=== PATIENT | male | born 1940 | race Two or more races ===

== ENCOUNTER 2018-06-19 00:13 | Inpatient (IN) | payer MEDICARE, MEDICAID ==
[~2018-06-19] VITALS: Ht 167.6 cm; Wt 65.8 kg
[2018-06-19 01:42] LABS: BASOPHILS % 0.4 % (0.0-2.0); EOSINOPHILS % 1.6 % (0.0-5.0); HEMATOCRIT. 44.2 % (42.0-52.0); HEMOGLOBIN. 15.1 g/dL (14.0-18.0); MEAN CORPUSCULAR HEMOGLOBIN 29.5 pg (28.0-32.0); MEAN CORPUSCULAR VOLUME 86.5 fL (80.0-94.0); MEAN PLATELET VOLUME 7.3 fl (7.4-10.4); MONOCYTES % 9.9 % (2.0-8.0); NEUTROPHILS % 69.1 % (40.0-76.0); PLATELET 289 x1000/uL (130-400); RED BLOOD CELL COUNT 5.11 mill/uL (4.7-6.1); RED CELL DISTRIBUTION WIDTH 13.3 % (11.6-14.6)
[2018-06-19 01:47] LABS: CHLORIDE 109 mEq/L (98-107)
[2018-06-19 01:51] LABS: ETHANOL BLOOD < 10 mg/dL
[2018-06-19 04:13] LABS: CLARITY URINE CLEAR (CLEAR); COLOR URINE YELLOW (YELLOW); KETONES URINE NEGATIVE (NEGATIVE); LEUKOCYTE ESTERASE URINE NEGATIVE (NEGATIVE); NITRITE URINE NEGATIVE (NEGATIVE); OCCULT BLOOD URINE NEGATIVE (NEGATIVE); PROTEIN URINE NEGATIVE (NEGATIVE); SPECIFIC GRAVITY URINE 1.017 (1.005-1.030)
[2018-06-19 04:16] LABS: *AMPHETAMINES SCREEN URINE NEGATIVE (NEGATIVE)
[2018-06-19 04:17] LABS: *BARBITURATES SCREEN URINE NEGATIVE (NEGATIVE); *BENZODIAZEPINES SCREEN URINE NEGATIVE (NEGATIVE); *COCAINE SCREEN URINE NEGATIVE (NEGATIVE); METHADONE URINE SCREEN NEGATIVE (NEGATIVE); OPIATES URINE SCREEN NEGATIVE (NEGATIVE)
[2018-06-19 04:18] LABS: CANNABINOID URINE SCREEN NEGATIVE (NEGATIVE); PHENCYCLIDINE URINE SCREEN NEGATIVE (NEGATIVE)
[2018-06-19] MEDS ORDERED: ONDANSETRON HCL 4MG/2ML INJ IV PRN (09:00)
[2018-06-19] MEDS ORDERED: ACETAMINOPHEN 650MG SUPP PR PRN (09:00)
[2018-06-19] MEDS ORDERED: ACETAMINOPHEN 325MG TABLET PO PRN (09:00)
[2018-06-19] MEDS ORDERED: CLONIDINE 0.1MG TABLET PO PRN (09:00)
[2018-06-19] MEDS ORDERED: HYDROCODONE/ACETAMINOPHEN 5/325MG TABLET PO PRN (09:00)
[2018-06-19] MEDS ORDERED: MAGNESIUM/ALUMINUM HYDROXIDE/SIMETHICONE 30ML UDC PO PRN (09:00)
[2018-06-19] MEDS ORDERED: IPRATROPIUM/ALBUTEROL 0.5-3(2.5)MG/3ML NEB INH PRN (09:00)
[2018-06-19] MEDS ORDERED: DOCUSATE SODIUM 100MG CAPSULE PO PRN (09:00)
[2018-06-19] MEDS ORDERED: ACETAMINOPHEN 650MG/20.3ML UDC GT PRN (09:00)
[2018-06-19] MEDS ORDERED: NA PHOS,M-B/NA PHOS,DI-BA ENEMA 118ML PR PRN (09:00)
[2018-06-19] MEDS ORDERED: GUAIFENESIN 200MG/10ML SUGAR FREE UDC PO PRN (09:00)
[2018-06-19] MEDS: SODIUM CHLORIDE 0.9% INJ 3ML FLUSH IVF SCH ×2 (14:00→21:54)
[2018-06-19 17:00] VITALS: BP 138/78
[2018-06-19] MEDS: ENOXAPARIN 40MG/0.4ML SYR SUBCUT SCH (17:00)
[2018-06-19 20:00] VITALS: BP 146/64
[2018-06-19 21:38] LABS: CREATINE KINASE 135 IU/L (39-308)
[2018-06-19 21:39] LABS: CREATINE KINASE MB FRACTION 1.4 ng/mL (0.5-3.6)
[2018-06-19 23:50] VITALS: BP 153/81
[2018-06-20 01:17] LABS: CREATINE KINASE 130 IU/L (39-308)
[2018-06-20 01:18] LABS: CREATINE KINASE MB FRACTION 1.5 ng/mL (0.5-3.6)
[2018-06-20 04:00] VITALS: BP 110/80
[2018-06-20] MEDS: SODIUM CHLORIDE 0.9% INJ 3ML FLUSH IVF SCH ×2 (06:40→15:37)
[2018-06-20 07:06] LABS: CHLORIDE 108 mEq/L (98-107)
[2018-06-20 07:11] LABS: BASOPHILS % 0.1 % (0.0-2.0); EOSINOPHILS % 1.6 % (0.0-5.0); HEMATOCRIT. 44.5 % (42.0-52.0); HEMOGLOBIN. 15.2 g/dL (14.0-18.0); LYMPHOCYTES % 22.5 % (20.0-50.0); MEAN CORPUSCULAR HEMOGLOBIN 29.5 pg (28.0-32.0); MEAN CORPUSCULAR VOLUME 86.2 fL (80.0-94.0); MEAN PLATELET VOLUME 7.6 fl (7.4-10.4); MONOCYTES % 8.8 % (2.0-8.0); PLATELET 294 x1000/uL (130-400); RED BLOOD CELL COUNT 5.16 mill/uL (4.7-6.1); RED CELL DISTRIBUTION WIDTH 13.4 % (11.6-14.6)
[2018-06-20 07:31] LABS: LDL CHOLESTEROL 115 mg/dL (5-100)
[2018-06-20 07:32] LABS: HDL CHOLESTEROL 34 mg/dL (40-59)
[2018-06-20 08:16] VITALS: BP 128/56
[2018-06-20] MEDS ORDERED: MULT-1146 MT (09:01)
[2018-06-20] MEDS ORDERED: THIA100T72 PO (09:01)
[2018-06-20] MEDS ORDERED: AMLO10TA4 MT (09:01)
[2018-06-20] MEDS ORDERED: CHOL100036 PO (09:01)
[2018-06-20] MEDS ORDERED: CLON0.1T MT (09:02)
[2018-06-20] MEDS ORDERED: MEMA10TA19 PO (09:02)
[2018-06-20] MEDS ORDERED: AMLODIPINE 10MG TABLET PO SCH (09:30)
[2018-06-20] MEDS ORDERED: MULTIVITAMINS,THER W-MINERALS TABLET PO SCH (09:30)
[2018-06-20] MEDS ORDERED: MEDICATION NOT ON FORMULARY EA (Multivitamin (Multi Vitamin Daily) 1 TAB) MT SCH (09:30)
[2018-06-20] MEDS: MEMANTINE HCL 10MG TABLET PO SCH ×2 (09:35→17:13)
[2018-06-20 12:00] VITALS: BP 128/68
[2018-06-20 16:29] VITALS: BP 122/51
[2018-06-20 17:05] VITALS: BP 122/52
[2018-06-20] MEDS: ENOXAPARIN 40MG/0.4ML SYR SUBCUT SCH (17:16)
[2018-06-20] MEDS ORDERED: ATORVASTATIN CALCIUM 10MG TABLET PO SCH (21:00)
[2018-06-20] MEDS ORDERED: CLONIDINE 0.1MG TABLET PO SCH (21:00)
== END 2018-06-20 18:32 | DRG 48 ==
LOC: ER 00:13 → 6WST 07:46 → ENRESERV 15:25 → 6WST 16:53
PROVIDERS: ADMIT Family Medicine; ATTEND Family Medicine
DX: G90.8 Other disorders of autonomic nervous system (principal); E87.8 Other disorders of electrolyte and fluid balance, not elsewhere classified; I11.0 Hypertensive heart disease with heart failure; I50.9 Heart failure, unspecified; R55 Syncope and collapse; E11.9 Type 2 diabetes mellitus without complications; M19.90 Unspecified osteoarthritis, unspecified site; F17.200 Nicotine dependence, unspecified, uncomplicated
CPT/HCPCS: 36415; 71045; 72170; 80061; 80305; 82140; 82550; 82553; 83880; 84484; 93005; 97161; 97166; 99285; G0482; J1650

== ENCOUNTER 2021-04-24 14:06 | Inpatient (IN) | payer MEDICARE, MEDICAID ==
[~2021-04-24] VITALS: Ht 165.1 cm; Wt 79.8 kg
[~2021-04-24 14:06] MED LIST: AMLO10TA4 MT; CHOL100036 PO; CLON0.1T MT; MEMA10TA55 PO; MULT-1146 MT; THIA100T72 PO
[2021-04-24] MEDS ORDERED: SODIUM CHLORIDE 0.9% 1,000 ML IV ONE (14:30)
[2021-04-24 15:15] LABS: BASOPHILS % 0.1 % (0.0-2.0); EOSINOPHILS % 1.2 % (0.0-5.0); HEMATOCRIT. 45.9 % (42.0-52.0); HEMOGLOBIN. 14.9 g/dL (14.0-18.0); MEAN CORPUSCULAR HEMOGLOBIN 28.8 pg (28.0-32.0); MEAN CORPUSCULAR VOLUME 88.6 fL (80.0-94.0); MEAN PLATELET VOLUME 7.7 fl (7.4-10.4); MONOCYTES % 5.2 % (2.0-8.0); NEUTROPHILS % 78.5 % (40.0-76.0); PLATELET 278 x1000/uL (130-400); RED BLOOD CELL COUNT 5.18 mill/uL (4.7-6.1); RED CELL DISTRIBUTION WIDTH 13.8 % (11.6-14.6)
[2021-04-24 15:22] LABS: CHLORIDE 108 mEq/L (98-107)
[2021-04-24] MEDS ORDERED: ONDANSETRON HCL 4MG/2ML INJ IV PRN (17:15)
[2021-04-24] MEDS ORDERED: DIPHENHYDRAMINE 50MG/ML VIAL IV PRN (17:15)
[2021-04-24] MEDS ORDERED: ACETAMINOPHEN 325MG TABLET PO PRN (17:15)
[2021-04-24 18:29] LABS: CLARITY URINE CLEAR (CLEAR); COLOR URINE YELLOW (YELLOW); KETONES URINE NEGATIVE (NEGATIVE); LEUKOCYTE ESTERASE URINE TRACE (NEGATIVE); NITRITE URINE NEGATIVE (NEGATIVE); OCCULT BLOOD URINE NEGATIVE (NEGATIVE); PROTEIN URINE 1+ (NEGATIVE); SPECIFIC GRAVITY URINE 1.019 (1.005-1.030)
[2021-04-24] MEDS: SODIUM CHLORIDE 0.9% 1,000 ML IV SCH (21:39)
[2021-04-25] VITALS (10 sets, daily range): BP systolic 120–148; BP diastolic 70–81
[2021-04-25] MEDS ORDERED: DEXTROSE 50% WATER 50ML SYRINGE IV PRN (00:15)
[2021-04-25] MEDS ORDERED: ARIP20TA16 PO (00:55)
[2021-04-25] MEDS ORDERED: OMEP1PAC7 PO (00:55)
[2021-04-25] MEDS ORDERED: MULT-1183 MT (00:55)
[2021-04-25] MEDS ORDERED: ASPI-1497 PO (00:55)
[2021-04-25] MEDS: BLOOD SUGAR DIAGNOSTIC STRIP TEST SCH ×4 (06:03→21:00)
[2021-04-25] MEDS: INSULIN LISPRO 100 UNITS/ML SUBCUT SCH ×4 (06:03→21:00)
[2021-04-25 06:46] LABS: BASOPHILS % 0.4 % (0.0-2.0); EOSINOPHILS % 1.7 % (0.0-5.0); HEMOGLOBIN. 14.5 g/dL (14.0-18.0); LYMPHOCYTES % 28.2 % (20.0-50.0); MEAN CORPUSCULAR HEMOGLOBIN 29.7 pg (28.0-32.0); MEAN CORPUSCULAR VOLUME 88.3 fL (80.0-94.0); MEAN PLATELET VOLUME 7.8 fl (7.4-10.4); MONOCYTES % 8.6 % (2.0-8.0); NEUTROPHILS % 61.1 % (40.0-76.0); PLATELET 242 x1000/uL (130-400); RED BLOOD CELL COUNT 4.87 mill/uL (4.7-6.1); RED CELL DISTRIBUTION WIDTH 13.6 % (11.6-14.6)
[2021-04-25 07:14] LABS: CHLORIDE 112 mEq/L (98-107)
[2021-04-25] MEDS: SODIUM CHLORIDE 0.9% 1,000 ML IV SCH ×2 (14:00→17:43)
[2021-04-25] MEDS: ARIPIPRAZOLE 5MG TABLET PO SCH ×2 (17:43→22:06)
[2021-04-25] MEDS: THIAMINE HCL 100MG TABLET PO SCH (17:44)
[2021-04-25] MEDS: ASPIRIN 81MG TABLET PO SCH (17:44)
[2021-04-25] MEDS: MEMANTINE HCL 10MG TABLET PO SCH (22:05)
[2021-04-26] VITALS (7 sets, daily range): BP systolic 126–172; BP diastolic 60–92
[2021-04-26] MEDS: INSULIN LISPRO 100 UNITS/ML SUBCUT SCH ×4 (05:54→21:00)
[2021-04-26] MEDS: BLOOD SUGAR DIAGNOSTIC STRIP TEST SCH ×4 (06:26→21:00)
[2021-04-26] MEDS: OMEPRAZOLE 20MG CAPSULE EXTENDED RELEASE PO SCH (06:27)
[2021-04-26 07:54] LABS: FOLIC ACID (FOLATE) SERUM 15.1 ng/mL (>5.38)
[2021-04-26] MEDS: CLONIDINE 0.1MG TABLET PO PRN (08:21)
[2021-04-26] MEDS: THIAMINE HCL 100MG TABLET PO SCH (08:21)
[2021-04-26] MEDS: AMLODIPINE 5MG TABLET PO SCH (08:21)
[2021-04-26] MEDS: MEMANTINE HCL 10MG TABLET PO SCH ×2 (08:21→22:07)
[2021-04-26] MEDS: MULTIVITAMINS,THER W-MINERALS TABLET PO SCH (08:21)
[2021-04-26] MEDS: ASPIRIN 81MG TABLET PO SCH (08:21)
[2021-04-26] MEDS: SODIUM CHLORIDE 0.9% 1,000 ML IV SCH (08:22)
[2021-04-26] MEDS: ARIPIPRAZOLE 5MG TABLET PO SCH (22:07)
[2021-04-27] VITALS: BP 126/83
[2021-04-27 04:00] VITALS: BP 160/84
[2021-04-27] MEDS: SODIUM CHLORIDE 0.9% 1,000 ML IV SCH (06:00)
[2021-04-27] MEDS: OMEPRAZOLE 20MG CAPSULE EXTENDED RELEASE PO SCH (07:16)
[2021-04-27] MEDS: INSULIN LISPRO 100 UNITS/ML SUBCUT SCH ×4 (07:50→21:00)
[2021-04-27 08:00] VITALS: BP 151/71
[2021-04-27] MEDS: BLOOD SUGAR DIAGNOSTIC STRIP TEST SCH ×4 (08:05→21:00)
[2021-04-27] MEDS: ASPIRIN 81MG TABLET PO SCH (08:24)
[2021-04-27] MEDS: THIAMINE HCL 100MG TABLET PO SCH (08:24)
[2021-04-27] MEDS: MULTIVITAMINS,THER W-MINERALS TABLET PO SCH (08:24)
[2021-04-27] MEDS: AMLODIPINE 5MG TABLET PO SCH ×2 (08:25→21:00)
[2021-04-27] MEDS: MEMANTINE HCL 10MG TABLET PO SCH ×2 (08:25→21:56)
[2021-04-27 12:00] VITALS: BP 165/83
[2021-04-27 16:00] VITALS: BP 143/80
[2021-04-27] MEDS: CLONIDINE 0.1MG TABLET PO PRN (18:10)
[2021-04-27 20:00] VITALS: BP 131/79
[2021-04-27] MEDS: ARIPIPRAZOLE 5MG TABLET PO SCH (21:56)
[2021-04-28] VITALS: BP 137/78
[2021-04-28] MEDS: SODIUM CHLORIDE 0.9% 1,000 ML IV SCH (02:00)
[2021-04-28 04:00] VITALS: BP 132/79
[2021-04-28] MEDS: BLOOD SUGAR DIAGNOSTIC STRIP TEST SCH ×3 (07:49→17:20)
[2021-04-28] MEDS: INSULIN LISPRO 100 UNITS/ML SUBCUT SCH ×3 (07:50→17:50)
[2021-04-28] MEDS ORDERED: FAMOTIDINE 20MG TABLET PO SCH (09:00)
[2021-04-28] MEDS: THIAMINE HCL 100MG TABLET PO SCH (09:21)
[2021-04-28] MEDS: AMLODIPINE 5MG TABLET PO SCH (09:22)
[2021-04-28] MEDS: MULTIVITAMINS,THER W-MINERALS TABLET PO SCH (09:22)
[2021-04-28] MEDS: MEMANTINE HCL 10MG TABLET PO SCH (09:22)
[2021-04-28] MEDS: ASPIRIN 81MG TABLET PO SCH (09:22)
[2021-04-28 15:10] VITALS: BP 158/83
== END 2021-04-28 20:39 | DRG 422 ==
LOC: ER 14:06 → ENRESERV 21:11 → 8WST 04-25 00:55 → 6EST 04-26 10:37
PROVIDERS: ADMIT Internal Medicine; ATTEND Internal Medicine
DX: E86.0 Dehydration (principal); N17.0 Acute kidney failure with tubular necrosis; E11.22 Type 2 diabetes mellitus with diabetic chronic kidney disease; F20.9 Schizophrenia, unspecified; N18.9 Chronic kidney disease, unspecified; Z20.822 Contact with and (suspected) exposure to COVID-19; I12.9 Hypertensive chronic kidney disease with stage 1 through stage 4 chronic kidney disease, or unspecified chronic kidney disease; Z87.891 Personal history of nicotine dependence; F10.11 Alcohol abuse, in remission
CPT/HCPCS: 36415; 71045; 80048; 80053; 81003; 82607; 82728; 82746; 82962; 83540; 83550; 84443; 85025; 87426; 87804; 93005; 93970; 97162; 99291; J7030

== ENCOUNTER 2021-07-02 11:57 | Emergency (ER) | payer MEDICARE, MEDICAID ==
[~2021-07-02] VITALS: Ht 157.5 cm; Wt 75.0 kg
[~2021-07-02 11:57] MED LIST changes: +ARIP20TA16 PO; +ASPI-1497 PO; +MULT-1183 MT; +OMEP1PAC7 PO
[2021-07-02] MEDS ORDERED: SODIUM CHLORIDE 0.9% 500 ML IV ONE (12:15)
[2021-07-02 13:26] LABS: CHLORIDE 105 mEq/L (98-107)
[2021-07-02 13:30] LABS: HEMATOCRIT. 44.4 % (42.0-52.0); HEMOGLOBIN. 15.1 g/dL (14.0-18.0); MEAN CORPUSCULAR HEMOGLOBIN 29.2 pg (28.0-32.0); MEAN CORPUSCULAR VOLUME 86.2 fL (80.0-94.0); MEAN PLATELET VOLUME 7.5 fl (7.4-10.4); PLATELET 328 x1000/uL (130-400); RED BLOOD CELL COUNT 5.16 mill/uL (4.7-6.1); RED CELL DISTRIBUTION WIDTH 13.5 % (11.6-14.6)
[2021-07-02 14:06] LABS: PLATELET ESTIMATE NORMAL
[2021-07-02 14:44] LABS: CLARITY URINE CLEAR (CLEAR); COLOR URINE YELLOW (YELLOW); KETONES URINE NEGATIVE (NEGATIVE); LEUKOCYTE ESTERASE URINE NEGATIVE (NEGATIVE); NITRITE URINE NEGATIVE (NEGATIVE); OCCULT BLOOD URINE NEGATIVE (NEGATIVE); PROTEIN URINE TRACE (NEGATIVE); SPECIFIC GRAVITY URINE 1.012 (1.005-1.030)
[2021-07-02 18:37] VITALS: BP 120/68
== END 2021-07-02 18:46 ==
LOC: ER 12:05
DX: F03.90 Unspecified dementia, unspecified severity, without behavioral disturbance, psychotic disturbance, mood disturbance, and anxiety (principal); I10 Essential (primary) hypertension
CPT/HCPCS: 36415; 70450; 71045; 80053; 81003; 82962; 83690; 84484; 85025; 85610; 93005; 96360; 96361; 99285; J7040

== ENCOUNTER 2022-08-04 11:23 | Inpatient (IN) | payer MEDICARE, MEDICAID ==
[~2022-08-04] VITALS: Ht 162.6 cm; Wt 64.1 kg
[~2022-08-04 11:23] MED LIST changes: +TAMS-11 PO
[2022-08-04] MEDS ORDERED: SODIUM CHLORIDE 0.9% 1,000 ML IV ONE (12:30)
[2022-08-04 13:09] LABS: CHLORIDE 116 mEq/L (98-107)
[2022-08-04 13:10] LABS: INR 1.2; PROTHROMBIN TIME 12.7 sec (9.6-11.0)
[2022-08-04 15:02] LABS: BASOPHILS % 0.3 % (0.0-2.0); EOSINOPHILS % 2.7 % (0.0-5.0); HEMATOCRIT. 44.3 % (42.0-52.0); HEMOGLOBIN. 14.6 g/dL (14.0-18.0); LYMPHOCYTES % 8.3 % (20.0-50.0); MEAN CORPUSCULAR HEMOGLOBIN 28.7 pg (28.0-32.0); MEAN CORPUSCULAR VOLUME 87.3 fL (80.0-94.0); MEAN PLATELET VOLUME 7.2 fl (7.4-10.4); MONOCYTES % 4.5 % (2.0-8.0); NEUTROPHILS % 84.2 % (40.0-76.0); PLATELET 435 x1000/uL (130-400); RED BLOOD CELL COUNT 5.08 mill/uL (4.7-6.1); RED CELL DISTRIBUTION WIDTH 14.2 % (11.6-14.6)
[2022-08-04 18:00] VITALS: BP 131/65
[2022-08-04] MEDS ORDERED: CLON0.1T PO (19:23)
[2022-08-04] MEDS ORDERED: CLON0.1T MT (19:23)
[2022-08-04] MEDS ORDERED: ARIP5TAB58 MT (19:23)
[2022-08-04] MEDS ORDERED: INSLIS SUBCUT (19:23)
[2022-08-04] MEDS ORDERED: ENOXAPARIN 40MG/0.4ML SYR SUBCUT SCH (19:45)
[2022-08-04] MEDS ORDERED: DEXTROSE 50% WATER 50ML SYRINGE IV PRN (19:45)
[2022-08-04] MEDS ORDERED: ONDANSETRON HCL 4MG/2ML INJ IV PRN (19:45)
[2022-08-04] MEDS ORDERED: ACETAMINOPHEN 325MG TABLET PO PRN (19:45)
[2022-08-04] MEDS ORDERED: CLONIDINE 0.1MG TABLET PO PRN (19:45)
[2022-08-04 20:00] VITALS: BP 128/65
[2022-08-04] MEDS ORDERED: LEVOFLOXACIN 500MG PREMIX 100 ML IV NR (21:00)
[2022-08-04] MEDS: INSULIN LISPRO 100 UNITS/ML SUBCUT SCH (21:00)
[2022-08-04] MEDS: BLOOD SUGAR DIAGNOSTIC STRIP TEST SCH (21:00)
[2022-08-04] MEDS: PANTOPRAZOLE SODIUM 40 MG/VIAL IV SCH (21:52)
[2022-08-04] MEDS: ENOXAPARIN 30MG/0.3ML SYR SUBCUT SCH (21:54)
[2022-08-04] MEDS: SODIUM CHLORIDE 0.9% 1,000 ML IV SCH (21:57)
[2022-08-04] MEDS: METRONIDAZOLE 500 MG PREMIX 100 ML IV SCH (23:02)
[2022-08-05 00:17] VITALS: BP 118/58
[2022-08-05 04:00] VITALS: BP 135/73
[2022-08-05] MEDS: SODIUM CHLORIDE 0.9% 1,000 ML IV SCH (04:00)
[2022-08-05] MEDS: METRONIDAZOLE 500 MG PREMIX 100 ML IV SCH ×3 (05:19→20:43)
[2022-08-05 06:06] LABS: BASOPHILS % 0.1 % (0.0-2.0); EOSINOPHILS % 3.8 % (0.0-5.0); HEMATOCRIT. 40.4 % (42.0-52.0); HEMOGLOBIN. 13.2 g/dL (14.0-18.0); LYMPHOCYTES % 12.5 % (20.0-50.0); MEAN CORPUSCULAR HEMOGLOBIN 27.9 pg (28.0-32.0); MEAN CORPUSCULAR VOLUME 85.6 fL (80.0-94.0); MEAN PLATELET VOLUME 7.3 fl (7.4-10.4); MONOCYTES % 6.1 % (2.0-8.0); NEUTROPHILS % 77.5 % (40.0-76.0); PLATELET 353 x1000/uL (130-400); RED BLOOD CELL COUNT 4.72 mill/uL (4.7-6.1)
[2022-08-05] MEDS: BLOOD SUGAR DIAGNOSTIC STRIP TEST SCH ×4 (06:50→20:42)
[2022-08-05 08:00] VITALS: BP 156/75
[2022-08-05] MEDS: INSULIN LISPRO 100 UNITS/ML SUBCUT SCH ×4 (08:10→20:42)
[2022-08-05] MEDS: ASPIRIN 81MG EC TABLET PO SCH (08:30)
[2022-08-05] MEDS: ARIPIPRAZOLE 5MG TABLET PO SCH (08:31)
[2022-08-05] MEDS: MEMANTINE HCL 10MG TABLET PO SCH ×2 (08:31→17:09)
[2022-08-05] MEDS: TAMSULOSIN HCL 0.4MG SR CAPSULE PO SCH (08:35)
[2022-08-05] MEDS: AMLODIPINE 10MG TABLET PO SCH (08:35)
[2022-08-05] MEDS: DEXT 5%/0.45% NACL 1000ML 1,000 ML IV SCH (10:59)
[2022-08-05 12:00] VITALS: BP 144/69
[2022-08-05 16:35] VITALS: BP 129/65
[2022-08-05 20:00] VITALS: BP 141/72
[2022-08-05] MEDS: PANTOPRAZOLE SODIUM 40 MG/VIAL IV SCH (20:42)
[2022-08-05] MEDS: ENOXAPARIN 30MG/0.3ML SYR SUBCUT SCH (20:42)
[2022-08-06] VITALS: BP 152/59
[2022-08-06 04:00] VITALS: BP 134/71
[2022-08-06] MEDS: BLOOD SUGAR DIAGNOSTIC STRIP TEST SCH ×4 (05:59→20:16)
[2022-08-06] MEDS: METRONIDAZOLE 500 MG PREMIX 100 ML IV SCH ×3 (05:59→20:17)
[2022-08-06] MEDS: INSULIN LISPRO 100 UNITS/ML SUBCUT SCH ×4 (05:59→20:16)
[2022-08-06 06:47] LABS: BASOPHILS % 0.4 % (0.0-2.0); EOSINOPHILS % 3.7 % (0.0-5.0); HEMATOCRIT. 39.3 % (42.0-52.0); LYMPHOCYTES % 12.5 % (20.0-50.0); MEAN CORPUSCULAR HEMOGLOBIN 28.3 pg (28.0-32.0); MEAN CORPUSCULAR VOLUME 85.7 fL (80.0-94.0); MEAN PLATELET VOLUME 7.4 fl (7.4-10.4); MONOCYTES % 6.6 % (2.0-8.0); NEUTROPHILS % 76.8 % (40.0-76.0); PLATELET 380 x1000/uL (130-400); RED BLOOD CELL COUNT 4.58 mill/uL (4.7-6.1); RED CELL DISTRIBUTION WIDTH 14.3 % (11.6-14.6)
[2022-08-06 08:00] VITALS: BP 148/76
[2022-08-06] MEDS: MEMANTINE HCL 10MG TABLET PO SCH ×2 (08:23→16:22)
[2022-08-06] MEDS: TAMSULOSIN HCL 0.4MG SR CAPSULE PO SCH (08:23)
[2022-08-06] MEDS: ARIPIPRAZOLE 5MG TABLET PO SCH (08:23)
[2022-08-06] MEDS: AMLODIPINE 10MG TABLET PO SCH (08:24)
[2022-08-06] MEDS: ASPIRIN 81MG EC TABLET PO SCH (08:24)
[2022-08-06] MEDS ORDERED: LEVOFLOXACIN 500MG PREMIX 100 ML IV SCH (11:00)
[2022-08-06 12:00] VITALS: BP 103/60
[2022-08-06] MEDS: DEXT 5%/0.45% NACL 1000ML 1,000 ML IV SCH ×2 (13:04)
[2022-08-06 16:00] VITALS: BP 113/53
[2022-08-06 20:00] VITALS: BP 110/47
[2022-08-06] MEDS: FAMOTIDINE 20MG/2ML VIAL IV SCH (20:16)
[2022-08-06] MEDS: ENOXAPARIN 30MG/0.3ML SYR SUBCUT SCH (20:16)
[2022-08-06] MEDS ORDERED: DIPHENOXYLATE/ATROPINE 2.5/0.025MG TABLET PO NR (23:06)
[2022-08-07] VITALS: BP 107/51
[2022-08-07 04:00] VITALS: BP 104/48
[2022-08-07] MEDS: DEXT 5%/0.45% NACL 1000ML 1,000 ML IV SCH ×2 (04:08→15:53)
[2022-08-07] MEDS: BLOOD SUGAR DIAGNOSTIC STRIP TEST SCH ×4 (05:25→20:16)
[2022-08-07] MEDS: INSULIN LISPRO 100 UNITS/ML SUBCUT SCH ×4 (05:25→20:16)
[2022-08-07] MEDS: METRONIDAZOLE 500 MG PREMIX 100 ML IV SCH ×3 (05:31→20:17)
[2022-08-07 06:08] LABS: BASOPHILS % 0.3 % (0.0-2.0); EOSINOPHILS % 3.8 % (0.0-5.0); HEMATOCRIT. 35.1 % (42.0-52.0); HEMOGLOBIN. 11.8 g/dL (14.0-18.0); LYMPHOCYTES % 20.6 % (20.0-50.0); MEAN CORPUSCULAR HEMOGLOBIN 28.7 pg (28.0-32.0); MEAN CORPUSCULAR VOLUME 85.1 fL (80.0-94.0); MEAN PLATELET VOLUME 7.3 fl (7.4-10.4); MONOCYTES % 8.2 % (2.0-8.0); NEUTROPHILS % 67.1 % (40.0-76.0); PLATELET 353 x1000/uL (130-400); RED BLOOD CELL COUNT 4.12 mill/uL (4.7-6.1); RED CELL DISTRIBUTION WIDTH 13.7 % (11.6-14.6)
[2022-08-07 08:00] VITALS: BP 118/66
[2022-08-07] MEDS: TAMSULOSIN HCL 0.4MG SR CAPSULE PO SCH (10:32)
[2022-08-07] MEDS: ARIPIPRAZOLE 5MG TABLET PO SCH (10:32)
[2022-08-07] MEDS: AMLODIPINE 10MG TABLET PO SCH (10:33)
[2022-08-07] MEDS: ASPIRIN 81MG EC TABLET PO SCH (10:33)
[2022-08-07] MEDS: MEMANTINE HCL 10MG TABLET PO SCH ×2 (10:38→18:49)
[2022-08-07 12:00] VITALS: BP 115/68
[2022-08-07 16:00] VITALS: BP 101/58
[2022-08-07 20:00] VITALS: BP 107/43
[2022-08-07] MEDS: ENOXAPARIN 30MG/0.3ML SYR SUBCUT SCH (20:16)
[2022-08-07] MEDS: FAMOTIDINE 20MG/2ML VIAL IV SCH (20:16)
[2022-08-08] VITALS: BP 117/51
[2022-08-08] MEDS: DEXT 5%/0.45% NACL 1000ML 1,000 ML IV SCH ×2 (05:26→18:03)
[2022-08-08] MEDS: METRONIDAZOLE 500 MG PREMIX 100 ML IV SCH ×3 (05:26→20:54)
[2022-08-08] MEDS: INSULIN LISPRO 100 UNITS/ML SUBCUT SCH ×4 (05:27→20:54)
[2022-08-08] MEDS: BLOOD SUGAR DIAGNOSTIC STRIP TEST SCH ×4 (05:27→20:54)
[2022-08-08] MEDS: TAMSULOSIN HCL 0.4MG SR CAPSULE PO SCH (09:18)
[2022-08-08] MEDS: ARIPIPRAZOLE 5MG TABLET PO SCH (09:19)
[2022-08-08] MEDS: MEMANTINE HCL 10MG TABLET PO SCH ×2 (09:19→18:03)
[2022-08-08] MEDS: AMLODIPINE 10MG TABLET PO SCH (09:19)
[2022-08-08] MEDS: ASPIRIN 81MG EC TABLET PO SCH (09:30)
[2022-08-08] MEDS ORDERED: LEVOFLOXACIN 750MG PREMIX 150 ML IV SCH (10:00)
[2022-08-08 12:00] VITALS: BP 113/69
[2022-08-08 16:00] VITALS: BP 115/68
[2022-08-08 20:00] VITALS: BP 111/56
[2022-08-08] MEDS: FAMOTIDINE 20MG/2ML VIAL IV SCH (20:53)
[2022-08-08] MEDS: ENOXAPARIN 30MG/0.3ML SYR SUBCUT SCH (20:53)
[2022-08-09] VITALS: BP 103/48
[2022-08-09 04:00] VITALS: BP 123/70
[2022-08-09] MEDS: METRONIDAZOLE 500 MG PREMIX 100 ML IV SCH ×2 (06:05→14:12)
[2022-08-09] MEDS: INSULIN LISPRO 100 UNITS/ML SUBCUT SCH ×2 (06:05→13:02)
[2022-08-09] MEDS: BLOOD SUGAR DIAGNOSTIC STRIP TEST SCH ×2 (06:05→13:01)
[2022-08-09] MEDS: DEXT 5%/0.45% NACL 1000ML 1,000 ML IV SCH (08:05)
[2022-08-09] MEDS: MEMANTINE HCL 10MG TABLET PO SCH (08:47)
[2022-08-09] MEDS: ARIPIPRAZOLE 5MG TABLET PO SCH (08:47)
[2022-08-09] MEDS: ASPIRIN 81MG EC TABLET PO SCH (08:47)
[2022-08-09] MEDS: TAMSULOSIN HCL 0.4MG SR CAPSULE PO SCH (08:48)
[2022-08-09] MEDS: AMLODIPINE 10MG TABLET PO SCH (08:48)
[2022-08-09 14:59] VITALS: BP 113/54
== END 2022-08-09 15:20 | DRG 720 ==
LOC: ER 11:23 → EDBEDREQ 16:00 → 7WST 18:00
PROVIDERS: ADMIT Internal Medicine; ATTEND Internal Medicine
DX: A41.9 Sepsis, unspecified organism (principal); N17.0 Acute kidney failure with tubular necrosis; G93.41 Metabolic encephalopathy; A09 Infectious gastroenteritis and colitis, unspecified; E11.9 Type 2 diabetes mellitus without complications; I10 Essential (primary) hypertension; K57.30 Diverticulosis of large intestine without perforation or abscess without bleeding; K21.9 Gastro-esophageal reflux disease without esophagitis; R26.81 Unsteadiness on feet; F03.90 Unspecified dementia, unspecified severity, without behavioral disturbance, psychotic disturbance, mood disturbance, and anxiety; F20.9 Schizophrenia, unspecified; F10.20 Alcohol dependence, uncomplicated; Z79.899 Other long term (current) drug therapy
CPT/HCPCS: 36415; 74176; 80048; 80053; 82962; 83605; 84145; 85025; 93005; 97162; 97530; 99285; A6261; C9113; J1650; J1956; J3490; J7030; A4315

== ENCOUNTER 2022-08-21 14:20 | Inpatient (IN) | payer MEDICARE, MEDICAID ==
[~2022-08-21] VITALS: Ht 160 cm; Wt 65.8 kg
[~2022-08-21 14:20] MED LIST changes: -ARIP20TA16 PO; +ARIP5TAB58 MT; +CLON0.1T PO; +INSLIS SUBCUT; -MULT-1146 MT; -MULT-1183 MT; -THIA100T72 PO
[2022-08-21 16:04] LABS: BG CARBOXYHEMOGLOBIN 1.1 % (0.5-1.5); BG DEOXYHEMOGLOBIN 5.2 % (0.0-5.0); BG FRACTION INSPIRED OXYGEN 21; BG HCO3 ACT 23.4 mmol/L (22.0-26.0); BG METHEMOGLOBIN 0.1 % (0.0-1.5); BG OXYGEN SATURATION 94.7 % (92.0-98.5); BG OXYHEMOGLOBIN 93.6 % (94.0-97.0); BG PCO2 34.4 mmHg (35.0-45.0); BG PO2 72.4 mmHg (75.0-100.0); BG SAMPLE SITE RIGHT BRACHIAL; BG VENT MODE ROOM AIR
[2022-08-21 16:28] LABS: BASOPHILS % 0.4 % (0.0-2.0); EOSINOPHILS % 5.1 % (0.0-5.0); HEMOGLOBIN. 15.5 g/dL (14.0-18.0); LYMPHOCYTES % 35.8 % (20.0-50.0); MEAN CORPUSCULAR HEMOGLOBIN 28.9 pg (28.0-32.0); MEAN CORPUSCULAR VOLUME 86.2 fL (80.0-94.0); MEAN PLATELET VOLUME 7.9 fl (7.4-10.4); MONOCYTES % 9.2 % (2.0-8.0); NEUTROPHILS % 49.5 % (40.0-76.0); PLATELET 328 x1000/uL (130-400); RED BLOOD CELL COUNT 5.34 mill/uL (4.7-6.1); RED CELL DISTRIBUTION WIDTH 15.8 % (11.6-14.6)
[2022-08-21 16:42] LABS: CHLORIDE 107 mEq/L (98-107)
[2022-08-21 16:58] LABS: CREATINE KINASE 24 IU/L (39-308); ETHANOL BLOOD < 10 mg/dL
[2022-08-21] MEDS: DEXT 5%/0.45% NACL 1000ML 1,000 ML IV SCH (19:30)
[2022-08-21] MEDS ORDERED: ONDANSETRON HCL 4MG/2ML INJ IV PRN (19:30)
[2022-08-21] MEDS: HEPARIN 5000 UNITS/ML VIAL SUBCUT SCH (21:00)
[2022-08-21 23:52] VITALS: BP 112/59
[2022-08-22] MEDS ORDERED: SODIUM CHLORIDE 0.9% 1,000 ML IV SCH (03:45)
[2022-08-22 06:37] LABS: BASOPHILS % 0.4 % (0.0-2.0); HEMATOCRIT. 45.4 % (42.0-52.0); HEMOGLOBIN. 14.8 g/dL (14.0-18.0); LYMPHOCYTES % 33.6 % (20.0-50.0); MEAN CORPUSCULAR HEMOGLOBIN 28.7 pg (28.0-32.0); MEAN CORPUSCULAR VOLUME 87.8 fL (80.0-94.0); MEAN PLATELET VOLUME 7.8 fl (7.4-10.4); MONOCYTES % 9.1 % (2.0-8.0); NEUTROPHILS % 51.9 % (40.0-76.0); PLATELET 357 x1000/uL (130-400); RED BLOOD CELL COUNT 5.17 mill/uL (4.7-6.1); RED CELL DISTRIBUTION WIDTH 15.8 % (11.6-14.6)
[2022-08-22 08:00] VITALS: BP 140/75
[2022-08-22 08:24] LABS: CHLORIDE 110 mEq/L (98-107)
[2022-08-22 09:05] LABS: HDL CHOLESTEROL 34 mg/dL (40-59); LDL CHOLESTEROL 116 mg/dL (5-100)
[2022-08-22] MEDS ORDERED: DEXTROSE 50% WATER 50ML SYRINGE IV PRN (10:00)
[2022-08-22] MEDS: TAMSULOSIN HCL 0.4MG SR CAPSULE PO SCH (10:56)
[2022-08-22] MEDS: HEPARIN 5000 UNITS/ML VIAL SUBCUT SCH ×2 (10:59→20:24)
[2022-08-22] MEDS: DEXT 5%/0.45% NACL 1000ML 1,000 ML IV SCH ×2 (11:04→21:42)
[2022-08-22 12:00] VITALS: BP 142/79
[2022-08-22 16:00] VITALS: BP 96/52
[2022-08-22 20:00] VITALS: BP 149/75
[2022-08-22] MEDS: BLOOD SUGAR DIAGNOSTIC STRIP TEST SCH (20:29)
[2022-08-22] MEDS: INSULIN LISPRO 100 UNITS/ML SUBCUT SCH (20:32)
[2022-08-23] VITALS: BP 124/73
[2022-08-23 04:00] VITALS: BP 131/71
[2022-08-23] MEDS: BLOOD SUGAR DIAGNOSTIC STRIP TEST SCH ×2 (06:33→12:20)
[2022-08-23] MEDS: INSULIN LISPRO 100 UNITS/ML SUBCUT SCH ×2 (07:50→12:50)
[2022-08-23 08:00] VITALS: BP 145/74
[2022-08-23] MEDS: TAMSULOSIN HCL 0.4MG SR CAPSULE PO SCH (09:00)
[2022-08-23] MEDS: HEPARIN 5000 UNITS/ML VIAL SUBCUT SCH (09:00)
[2022-08-23] MEDS ORDERED: MIRT-118 MT (11:42)
[2022-08-23 12:00] VITALS: BP 131/65
[2022-08-23 16:00] VITALS: BP 125/75
[2022-08-23 16:15] VITALS: BP 131/65
[2022-08-23] MEDS ORDERED: MIRTAZAPINE 15MG TABLET PO SCH (21:00)
== END 2022-08-23 16:40 | DRG 52 ==
LOC: ER 14:20 → 6EST 19:17 → EDBEDREQ 19:37 → EDBEDREQTM 19:37
PROVIDERS: ADMIT Family Medicine; ATTEND Family Medicine
DX: G93.41 Metabolic encephalopathy (principal); R62.7 Adult failure to thrive; F03.90 Unspecified dementia, unspecified severity, without behavioral disturbance, psychotic disturbance, mood disturbance, and anxiety; E11.9 Type 2 diabetes mellitus without complications; E86.0 Dehydration; N28.89 Other specified disorders of kidney and ureter; Z20.822 Contact with and (suspected) exposure to COVID-19; I10 Essential (primary) hypertension; E56.9 Vitamin deficiency, unspecified; N40.0 Benign prostatic hyperplasia without lower urinary tract symptoms; F20.9 Schizophrenia, unspecified; Z68.25 Body mass index [BMI] 25.0-25.9, adult; Z79.899 Other long term (current) drug therapy
CPT/HCPCS: 36415; 36600; 71045; 74018; 76700; 80053; 80061; 80307; 80320; 80329; 82140; 82248; 82375; 82550; 82805; 82962; 83036; 83605; 83880; 84443; 84484; 85025; 86850; 86900; 87426; 92610; 97162; 97166; 97530; 99285; A6261; J1644; J2405; G0480